=== PATIENT | male | born 1990 | race Caucasian/White ===

== ENCOUNTER → 2017-03-22 | Outpatient (CLI) | payer OTHER ==
--- NOTE | 2017-03-22 15:38 | RADIOLOGY IMAGING REPORT ---
FACILITY: [facility] - [place] PATIENT NAME: Omer Holt : 1990 MR: [id number] V: [id number] EXAM DATE: ORDERING PHYSICIAN: MILAGROS DORMAN TECHNOLOGIST: Location: [facility] Patient: Omer Holt : 1990 Visit/Account:[id number] Date of Sevice: 03/22/2017 MRI left knee without contrast Indication: Knee pain. Twisting. Popping sensation. Comparison: None available. Technique: Multiplanar, multisequence MRI examination is performed of the left knee without contrast. Findings: Examination of the medial compartment demonstrates a normal medial meniscus. The articular cartilage surfaces are normal. Examination of the lateral compartment demonstrates a normal lateral meniscus. The articular cartilag e surfaces are normal. Examination of the patellofemoral compartment demonstrates normal patellar and normal trochlear surfa nathaly. The anterior cruciate ligament is intact. There is a high-grade tear of the posterior cruciate ligame nt in its midportion. There may be a few intact fibers. This represents a near full-thickness tear. T here is some surrounding edema within the intercondylar notch. The MCL is intact. There is mild thickening of the proximal third of the fibular collateral ligament with surrounding an d intrasubstance signal. There may be some focal fraying at the origin consistent with a low to inter mediate grade sprain. Remaining lateral collateral ligament complex structures are intact. The extensor mechanism is intact. Intermediate joint effusion is seen. This extends into a popliteal cyst. IMPRESSION: 1. High-grade tear of the midportion of the right knee posterior cruciate ligament. 2. Low-intermediate grade proximal third fibular collateral ligament sprain with surrounding edema. 3. Intact left knee menisci and articular surfaces. 4. Intermediate joint effusion extending into a popliteal cyst. Report Dictated By: Luis Eduardo Segura at 03/22/2017 3:21 PM Report E-Signed By: Luis Eduardo Segura at 03/22/2017 3:35 PM WSN:[id number]
== END ==
LOC: MRI 13:27
PROVIDERS: ATTEND Emergency Medicine Sports Medicine
DX: S83.522A Sprain of posterior cruciate ligament of left knee, initial encounter (principal); M25.462 Effusion, left knee